=== PATIENT | female | born 1990 | race Caucasian/White ===

== ENCOUNTER 2025-07-20 00:10 | Inpatient (IN) | payer BC, SELFPAY ==
[2025-07-20] MEDS: LR 1000 IV ×2 (00:30→04:40)
[2025-07-20 00:35] VITALS: BP 117/66; BMI 29.6
--- NOTE | 2025-07-20 00:44 | HPS.HSE ---
Family Physician
-
Family Physician: INTERVIEWE UNKNOWN - PT NOT
Chief Complaint
-
contractions
History of Present Illness
Jessica is a 35 yo at 38w4d in active labor.
labs: not completed. GBS neg, 1hr GTT 71, RPR nonreactive, Hgb at 28w 11.4
Medical History
Past Medical History
Past Medical History: Reports None
Past Surgical History: Reports (x2)
Social History
Tobacco: Non-smoker
Alcohol: None
Drug: None
Family History
Family History: Not pertinent
Allergies / Home Medications
Allergies reflects when Allergies were last updated in [facility].
Home Medications with original date entered in [facility]
Allergy/Medication List:
NKDA
Review of Systems
-
A 12 point ROS was completed and negative except as noted: No
Constitutional: Reports No Symptoms
Respiratory: Reports No Symptoms
Cardiac: Reports No Symptoms
Abdomen/GI: Reports Abdominal Pain
: Reports No Symptoms
Physical Exam
Vital Signs
Vital Signs
Temp Pulse Resp BP
97.9 F 66 20 117/66
07/20/25 00:35 07/20/25 00:35 07/20/25 00:35 07/20/25 00:35
Physical Exam
General: Appears in Distress
Respiratory: Non Labored Respirations
GI: Soft and Non Tender
Genito-urinary: Other (SVE 4cm, membranes intact)
Skin: Warm and Dry
Impression/Plan
-
IMPRESSION:
35 yo in active labor at 38w4d.
PLAN:
Admit
2g Ancef
Plan for spinal/
[2025-07-20] MEDS: TYLENOL 975 MG PO (00:50)
[2025-07-20] MEDS: BICITRA 30 ML PO (00:50)
[2025-07-20 00:53] LABS: Hematocrit 34.9 % (37.0-47.0); Hemoglobin 12.4 g/dL (12.0-16.0); Mean Corp Hgb Conc. 35.5 g/dL (33.0-37.0); Mean Corpuscular Volume 84.3 fL (81.0-99.0); Nucleated Red Blood Cells % 0 %; Platelet Count 246 10^3/uL (130-400); Red Cell Dist. Width 12.7 % (11.5-14.5)
[2025-07-20] MEDS: ANCEF 10 IV (01:11)
--- NOTE | 2025-07-20 02:17 | OR.RPT ---
Operative Report
Operative Report
Operative report
Patient name: Jessica Luciano
: 1990

Date of surgery: 07/20/2025
Surgeon: MD Tory
Preop diagnosis: 38 weeks 4 days, repeat for labor at term
Postop diagnosis: RLTCS at 38 weeks 4 days
Procedure: RLTCS
Inorganic Chemist: Gemini Costa RN
Anesthesia: Spinal, MD Pierre
QBL: 435 cc
Drains: Santos
Op findings: Viable male at 7 pounds 5.5 ounces, no nuchal cord, Apgars 8 and 8, clear amniotic fluid, delayed cord clamping performed, normal uterus, bilateral fallopian tubes, and ovaries. Small left uterine extension. Moderate fascial
adhesion, and minimal bladder adhesion. Intact placenta delivered, central cord insertion, 3-VC.
Description of procedure:
The patient was taken to the operating room. Spinal anesthesia was adequately established and 2 g of Ancef was given for preoperative prophylaxis. The patient was then placed in the dorsal supine position with a left tilt of the hips. Santos
catheter was placed aseptically. The patient was then prepped with ChloraPrep for abdominal prep and draped in the usual sterile fashion for a Pfannenstiel skin incision. A time out was performed to confirm correct patient and correct procedure.
An incision was made in the skin with a surgical scalpel and sharp dissection was carried out over subsequent layers of tissue including the fascia, followed by the Bovie electrocautery for hemostasis. The fascia was incised at the midline and the
fascial incision was extended bilaterally using the curved Gonsalez scissors.
The superior edge of the fascial incision was grasped with Yasmin clamps, tented up and the underlying rectus muscles were dissected off bluntly and sharply using Gonsalez scissors. The rectus muscles were then divided at midline and the peritoneum was
identified tented up at its upper margin taking care to avoid the bladder and then entered. The peritoneal incision was extended.
A bladder flap was developed using Metzenbaum scissors. The bladder blade was inserted and a transverse incision was made in the lower uterine segment using a new surgical blade. The uterine incision was extended cephalad and caudal using blunt
dissection. The amniotic sac was entered and the amniotic fluid was noted to be clear.
The surgeon's hand was placed into the uterine cavity. The head was identified and elevated through the uterine incision with the assistance of fundal pressure. With gentle traction, the shoulder was delivered followed by the rest of the
body. There was no nuchal cord noted. On delivery, the cord was doubly clamped and cut after delayed cord clamping. The was then passed off the table to the awaiting staff. The was noted to cry spontaneously moving
all extremities. The placenta delivered spontaneously and intact and was sent to storage. Placenta was noted to be intact with centrally inserted three-vessel cord. Oxytocin was administered by IV infusion to enhance uterine contraction. The
uterus was exteriorized and cleared of all clots and debris.
The uterine incision was reapproximated using a 0 Vicryl in a running locked fashion. A second imbricating stitch with the same suture was applied. Additional figure of 8 was placed over the left aspect of the incision. The uterine incision was
examined and noted to be hemostatic. The posterior cul-de-sac was cleared of all clots and debris. The uterus was replaced into the abdomen and the paracolic gutters were cleared of all clots. The uterine incision was once again reexamined and
Surgicel was placed over the uterine incision for additional hemostasis. The uterine incision was noted to be hemostatic the fascia was reapproximated using 0 Vicryl in a running nonlocked fashion. The subcutaneous tissue was irrigated and cleared
of all clots and debris. Good hemostasis was noted with Bovie electrocautery. The subcutaneous tissue was reapproximated with running 2-0 plain gut. The skin incision was closed using 4-0 Monocryl with Dermabond overlying. Good hemostasis was
noted. Patient tolerated procedure well. All needle sponge and instrument counts were noted to be correct x 2 at the end of the procedure. Patient was transferred to the recovery room in stable condition. Dr. Spears was present for all
portions of the procedure.
Complications: None
[2025-07-20] MEDS: PITOCIN 30 UNITS/NSS 500 ML IV ×2 (02:30→04:18)
[2025-07-20 03:12] LABS: Urine Character Slightly Cloudy (Clear)
[2025-07-20 03:20] LABS: Urine Squamous Cell 0-2 /LPF (Few)
[2025-07-20 03:22] LABS: Urine Red Blood Cell 0-2 /HPF (0-2); Urine White Cell 0-2 /HPF (0-5)
[2025-07-20] MEDS: ZOFRAN 4 MG IV (04:13)
--- NOTE | 2025-07-20 07:26 | W.PN.ANS.POP ---
Anesthesia Post Operative
- Anesthesia Post Op Note
Vital Signs Stable-See Nursing Note: Yes
Airway Patent: Yes
Adequate Pain Control: Yes
Change in Mental Status: No
Current Postoperative Nausea & Vomiting: No
Anesthesia Complications: No
General Anesthetic Recall: No
Unplanned Admission: No
Post Op Hydration Adequate: Yes
[2025-07-20] MEDS: COLACE 100 MG PO ×2 (07:37→19:58)
[2025-07-20] MEDS: TORADOL 15 MG IV ×3 (07:38→19:58)
[2025-07-20] MEDS: REGLAN 10 MG IV (07:55)
[2025-07-20 16:26] LABS: Hepatitis B Surface Antigen Negative (Negative)
[2025-07-20] MEDS: MYLICON 80 MG PO (18:23)
[2025-07-21] MEDS: TORADOL 15 MG IV (01:45)
[2025-07-21 05:37] LABS: Hematocrit 27.1 % (37.0-47.0); Hemoglobin 9.4 g/dL (12.0-16.0); Mean Corp Hgb Conc. 34.7 g/dL (33.0-37.0); Mean Corpuscular Volume 89.7 fL (81.0-99.0); Platelet Count 224 10^3/uL (130-400); Red Cell Dist. Width 13.2 % (11.5-14.5)
[2025-07-21] MEDS: COLACE 100 MG PO ×2 (08:21→20:05)
[2025-07-21] MEDS: TYLENOL 650 MG PO ×3 (08:25→17:23)
[2025-07-21] MEDS: MOTRIN 600 MG PO ×2 (08:25→20:05)
[2025-07-21] MEDS: MYLICON 80 MG PO ×3 (08:25→22:27)
[2025-07-21] MEDS: FEOSOL 325 MG PO (13:25)
[2025-07-21 20:03] LABS: Hepatitis C Antibody Negative (Negative)
[2025-07-22] MEDS: MOTRIN 600 MG PO ×2 (02:19→09:23)
[2025-07-22] MEDS: TYLENOL 650 MG PO ×2 (02:19→09:23)
[2025-07-22] MEDS: MYLICON 80 MG PO (09:22)
[2025-07-22] MEDS: COLACE 100 MG PO (09:22)
[2025-07-22] MEDS: FEOSOL 325 MG PO (09:23)
[2025-07-22 13:11] LABS: Syphilis/T. pallidum Ab Reflex Negative (Negative)
[2025-07-22 13:11] LABS: Syphilis/T. pallidum Ab Reflex Negative (Negative)
== END 2025-07-22 13:06 | disposition home or self-care (01) | DRG 788 ==
LOC: LDRP 00:10
PROVIDERS: ADMITTING PHYSICIAN Obstetrics & Gynecology
PROC: 10D00Z1 Extraction of Products of Conception, Low, Open Approach (ICD-10-PCS; 2025-07-20)
DX: O34.211 Maternal care for low transverse scar from previous cesarean delivery (principal); Z3A.38 38 weeks gestation of pregnancy; Z37.0 Single live birth
CPT/HCPCS: 80306; 80307; 81003; 81015; 85025; 85027; 86762; 86780; 86803; 86850; 86900; 86901; 87086; 87340; 87389